=== PATIENT | male | born 1955 | race Caucasian/White ===

== ENCOUNTER 2016-08-25 01:38 | Inpatient (IN) | payer OTHER ==
[~2016-08-25] VITALS: Ht 165.1 cm; Wt 80.9 kg
[~2016-08-25 01:38] MED LIST: NOHOMEMEDS
[2016-08-25 01:59] LABS: HEMATOCRIT 41.4 % (38.0-50.0); MCH 30.6 PG (29.0-34.0); MCHC 35.5 G/DL (30.0-36.0); MCV 86.1 FL (86-99); MEAN PLAT.VOLUME 9.3 uM^3 (9.0-12.4); PLATELET COUNT 210 K/uL (156-360); RBC DIS.WIDTH-CV 12.5 % (11.8-14.6); RBC DIS.WIDTH-SD 38.5 % (39-53); RED BLOOD COUNT 4.81 M/uL (4.00-5.50); WHITE BLOOD COUNT 10.4 K/uL (4.1-10.2)
[2016-08-25 02:03] LABS: ADD MIUA? YES; BILIRUBIN NEGATIVE; BLOOD NEGATIVE; COLOR YELLOW ((YELLOW)); GLUCOSE (STRIP) NEGATIVE; KETONES NEGATIVE; LEUKOCYTES NEGATIVE; NITRITE NEGATIVE; PROTEIN (STRIP) NEGATIVE; SPECIFIC GRAVITY 1.021 (1.000-1.030)
[2016-08-25 02:11] LABS: CHLORIDE 104 mEq/L (99-109); POTASSIUM 3.3 mEq/L (3.7-5.4); SODIUM 138 mEq/L (136-147)
[2016-08-25 02:14] LABS: GLUCOSE 149 mg/dL (70-99)
[2016-08-25] MEDS ORDERED: ZOCOR80 MG PO (02:14)
[2016-08-25] MEDS ORDERED: FISH OIL 1,0001 EAC7 PO (02:14)
[2016-08-25] MEDS ORDERED: ECOTRIN325 MG PO (02:14)
[2016-08-25] MEDS ORDERED: METOPROLOL SUCC25 MG PO (02:14)
[2016-08-25 02:15] LABS: ANION GAP 13 MEQ/L (2-14); TOTAL BILIRUBIN 1.3 mg/dL (0.0-1.0)
[2016-08-25 02:17] LABS: ALKALINE PHOSPHATASE 77 IU/L (3-129); GFR ESTIMATE (CALCULATED) > 59 mL/min/
[2016-08-25 02:18] LABS: UREA NITROGEN (BUN) 16 mg/dL (9-23)
[2016-08-25 02:19] LABS: BACTERIA NONE SEEN /HPF; DIRECT BILIRUBIN 0.4 mg/dL (0.0-0.3); EPITHELIAL CELLS NONE SEEN /HPF; MUCUS TRACE /LPF; RED BLOOD CELLS 0-5 /HPF (0-5); UCUL ADDED? NO; WHITE BLOOD CELLS 0-5 /HPF (0-5)
[2016-08-25 02:21] LABS: LIPASE 38 U/L (1.0-51.0)
[2016-08-25] MEDS ORDERED: BENTYL20 MG PO (02:50)
[2016-08-25 19:53] VITALS: BP 143/73
[2016-08-26] VITALS: BP 108/59
[2016-08-26 02:56] VITALS: BP 116/73
[2016-08-26 07:33] LABS: ALKALINE PHOSPHATASE 64 IU/L (3-129); ANION GAP 5 MEQ/L (2-14); CHLORIDE 105 MEQ/L (99-109); GFR ESTIMATE (CALCULATED) > 59 mL/min/; GLUCOSE 115 mg/dL (70-99); SAMPLE HEMOLYSIS CHECK 0; SAMPLE ICTERIC CHECK 0; SAMPLE LIPEMIA CHECK 0; SODIUM 139 MEQ/L (136-147); TOTAL BILIRUBIN 1.4 MG/DL (0.0-1.0); UREA NITROGEN (BUN) 8 mg/dL (9-23)
[2016-08-26 07:44] LABS: EOSINOPHIL COUNT 0.1 K/uL (0-0.3); HEMATOCRIT 40.2 % (38.0-50.0); LYMPHOCYTE COUNT 1.7 K/uL (1.0-2.8); MCHC 32.6 G/DL (30.0-36.0); MCV 89.1 FL (86-99); MEAN PLAT.VOLUME 9.8 uM^3 (9.0-12.4); MONOCYTE (%) 12.2 % (3-12); MONOCYTE COUNT 0.8 K/uL (0-0.8); NEUTROPHIL COUNT 3.8 K/uL (1.8-6.4); PLATELET COUNT 160 K/uL (156-360); RBC DIS.WIDTH-CV 13.1 % (11.8-14.6); RBC DIS.WIDTH-SD 42.2 % (39-53); RED BLOOD COUNT 4.51 M/uL (4.00-5.50)
[2016-08-26 07:52] LABS: WHITE BLOOD COUNT 6.5 K/uL (4.1-10.2)
[2016-08-26 10:22] VITALS: BP 115/65
[2016-08-26 13:32] VITALS: BP 112/68
[2016-08-26] MEDS ORDERED: NORCO 5/3251 TABLET PO (16:27)
[2016-08-26 18:54] VITALS: BP 133/70
[2016-08-26 20:09] VITALS: BP 117/64
[2016-08-27 00:01] VITALS: BP 113/60
[2016-08-27 03:56] VITALS: BP 110/58
[2016-08-27 08:13] VITALS: BP 110/62
== END 2016-08-27 10:05 | disposition home or self-care (01) | DRG 419 ==
LOC: EME 01:38 → 5EAST 07:05 → EDOF 07:05 → 5EAST 19:48
PROVIDERS: Surgery
DX: K80.12 Calculus of gallbladder with acute and chronic cholecystitis without obstruction (principal); I25.10 Atherosclerotic heart disease of native coronary artery without angina pectoris; Z95.5 Presence of coronary angioplasty implant and graft; I10 Essential (primary) hypertension; E78.5 Hyperlipidemia, unspecified; I88.0 Nonspecific mesenteric lymphadenitis
CPT/HCPCS: 74176; 74300; 76705; 80048; 80053; 80076; 81003; 83690; 85025; 85027; 88304; 99281; 99285; J0690; J1100; J1170; J1885; J2250; J2270; J2405; J2710; J2765; J3010; J3480; J7030; S0020